=== PATIENT | female | born 1995 | race Hispanic/Latino ===

== ENCOUNTER 2017-07-16 04:02 | Emergency (ER) | payer MEDICAID ==
[2017-07-16 04:54] LABS: Bilirubin,Urine NEG (Negative); Blood,Urine MOD (Negative); Ketones,Urine NEG (Negative); Leukocyte Esterase,Urine MOD (Negative); Mucus,Urine 3+ /HPF; Nitrite,Urine NEG (Negative); Urobilinogen,Urine < 2.0 mg/dL (<2.0)
[2017-07-16 05:00] LABS: RBC,Urine > 182.0 /HPF (0.0-6.0); WBC,Urine > 182.0 /HPF (0.0-6.0)
[2017-07-16 05:06] LABS: Basophils % (Auto) 0.7 % (0.0-1.8); Eosinophils % (Auto) 2.1 % (0.0-4.3); Hematocrit 47.6 % (30.3-42.9); Hemoglobin 15.4 gm/dl (10.1-14.3); Mean Corpuscular HGB Conc 32 % (30-34); Mean Corpuscular Hemoglobin 30 pg (28-32); Mean Corpuscular Volume 92 fl (79-97); Platelet Count 378 K/mm3 (140-440); Red Blood Count 5.18 M/mm3 (3.65-5.03); Red Cell Distribution Width 13.9 % (13.2-15.2); White Blood Count 13.1 K/mm3 (4.5-11.0)
[2017-07-16 05:14] LABS: Alanine Aminotransferase 16 units/L (7-56); Albumin 4.7 g/dL (3.9-5); Albumin/Globulin Ratio 1.6 %; Alkaline Phosphatase 65 units/L (35-129); Anion Gap 19 mmol/L; BUN/Creatinine Ratio 28; Blood Urea Nitrogen 14 mg/dL (7-17); Calcium 9.3 mg/dL (8.4-10.2); Carbon Dioxide 25 mmol/L (22-30); Chloride 96.9 mmol/L (98-107); Glucose 94 mg/dL (65-100); Lipase 23 units/L (13-60); Potassium 4.2 mmol/L (3.6-5.0); Sodium 137 mmol/L (137-145); Total Protein 7.7 g/dL (6.3-8.2)
[2017-07-16] MEDS ORDERED: TYLENOL ONE (06:05)
[2017-07-16] MEDS ORDERED: TYLENOL PO ONE (06:31)
[2017-07-16] MEDS ORDERED: MACROBID PO ONE (10:29)
[2017-07-16] MEDS ORDERED: MOTRIN PO ONE (10:29)
--- NOTE | 2017-07-16 10:35 | Emergency Department Report ---
HPI - General Chief Complaint: Abdominal Pain Time Seen by Provider: 07/16/17 10:20 - HPI HPI: This is a 21-year-old female presents to the emergency department with complaint of dysuria, and some blood in the urine that has been going on since about 2 AM last night. She did not take anything for her symptoms prior to presentation. However she did receive some Tylenol from triage and says that helped with her discomfort. She denies any past medical history. She denies any vaginal bleeding other than the blood seen in the urine. She denies any vaginal discharge, fever, nausea, vomiting, back pain. No recent travel or sick contacts at home. She does not have a primary care physician. ED Past Medical Hx - Past Medical History Previous Medical History?: No - Surgical History Past Surgical History?: No - Social History Smoking Status: Current Every Day Smoker Substance Use Type: Alcohol, Marijuana - Medications Home Medications: Home Medications Medication Instructions Recorded Confirmed Last Taken Type Nitrofurantoin [place]/M-Cryst 100 mg PO BID #14 capsule 07/16/17 Unknown Rx [Macrobid CAP] Phenazopyridine [Pyridium] 100 mg PO TID #6 tab 07/16/17 Unknown Rx ED Review of Systems ROS: Stated complaint: UNABLE TO URINATE Other details as noted in HPI Comment: All other systems reviewed and negative Constitutional: denies: chills, fever Eyes: denies: eye pain, eye discharge, vision change ENT: denies: ear pain, throat pain Respiratory: denies: cough, shortness of breath, wheezing Cardiovascular: denies: chest pain, palpitations Gastrointestinal: denies: nausea, vomiting Genitourinary: dysuria, hematuria Musculoskeletal: denies: back pain, joint swelling, arthralgia Skin: as per HPI Neurological: denies: headache, weakness, paresthesias Physical Exam - Physical Exam Vital Signs: Vital Signs 07/16/17 07/16/17 04:07 08:21 Temperature 99 F Pulse Rate 104 H 85 Respiratory 18 18 Rate Blood Pressure 125/84 Blood Pressure 104/64 [Left] O2 Sat by Pulse 99 97 Oximetry Physical Exam: GENERAL: The patient is well-developed well-nourished. HENT: Normocephalic. Atraumatic. Patient has moist mucous membranes. Oropharynx is clear without tonsillar hypertrophy, erythema or exudates. EYES: Extraocular motions are intact. Pupils equal reactive to light bilaterally. NECK: Supple. Trachea is midline. CHEST/LUNGS: Clear to auscultation. There is no respiratory distress noted. HEART/CARDIOVASCULAR: Regular. There is no tachycardia. There is no gallop rub or murmur. ABDOMEN: Abdomen is soft, nontender. Patient has normal bowel sounds. There is no abdominal distention. SKIN: Skin is warm and dry. NEURO: The patient is awake, alert, and oriented. The patient is cooperative. The patient has no focal neurologic deficits. The patient has normal speech. MUSCULOSKELETAL: There is no tenderness or deformity. There is no evidence of acute injury. ED Course Vital Signs 07/16/17 07/16/17 04:07 08:21 Temperature 99 F Pulse Rate 104 H 85 Respiratory 18 18 Rate Blood Pressure 125/84 Blood Pressure 104/64 [Left] O2 Sat by Pulse 99 97 Oximetry ED Medical Decision Making - Lab Data Result diagrams: 07/16/17 04:23 07/16/17 04:23 - Medical Decision Making 21 yo female presents with dysuria and hematuria and patient's urinalysis does show a significant urinary tract infection. There is a slight leukocytosis of about 13,000 but the patient does not have any fever, nausea, vomiting, hypotension or any other signs of systemic infection. She was given a dose of Macrobid for her urinary tract infection and will go home on a 1 week course of this antibiotic. She is sleeping when approached for history and physical but easily arousable but does not appear in any acute distress. She denies any back pain. This appears low suspicion for pyelonephritis. She will be given referrals for primary care. - Differential Diagnosis UTI, pyelonephritis, , fibroid Critical Care Time: No Critical care attestation.: If time is entered above; I have spent that time in minutes in the direct care of this critically ill patient, excluding procedure time. ED Disposition Clinical Impression: UTI (urinary tract infection) Qualifiers: Urinary tract infection type: acute cystitis Hematuria presence: with hematuria Qualified Code(s): N30.01 - Acute cystitis with hematuria Hematuria Qualifiers: Hematuria type: benign essential microscopic Qualified Code(s): R31.1 - Benign essential microscopic hematuria Disposition: - TO HOME OR SELFCARE Is pt being admited?: No Condition: Stable Instructions: Urinary Tract Infection in Women (ED), Acute Hematuria (ED) Additional Instructions: Please follow up with a primary care doctor in the next few days. Return to the emergency Department with any worsening of your symptoms or any acute distress. Take the antibiotics as prescribed. I have also given you a 2 day course of Pyridium, which is to help with bladder spasm and discomfort. You should know that this medication has a side effect that it may turn your urine and other secretions abnormal colors such as orange. Prescriptions: Nitrofurantoin [place]/M-Cryst [Macrobid CAP] 100 mg PO BID #14 capsule Phenazopyridine [Pyridium] 100 mg PO TID #6 tab Referrals: PRIMARY CARE, [Primary Care Provider] - 3-5 Days JOVANNI BILLINGS MD [Staff Physician] - 3-5 Days [facility] [Outside] - 3-5 Days Time of Disposition: 10:36
[2017-07-16 11:56] VITALS: BP 105/68
== END 2017-07-16 10:46 | disposition home or self-care (01) ==
LOC: ED 04:02
DX: N30.01 Acute cystitis with hematuria (principal); R31.1 Benign essential microscopic hematuria; F12.10 Cannabis abuse, uncomplicated; F17.200 Nicotine dependence, unspecified, uncomplicated
CPT/HCPCS: 36415; 80053; 81001; 83690; 84702; 85025; 86850; 86900; 86901; 99283